=== PATIENT | female | born 1975 | race Caucasian/White ===

== ENCOUNTER 2025-01-20 06:16 | Emergency (ER) | payer BC ==
--- NOTE | 2025-01-20 08:06 | ER ---
Nurse's Notes [facility] Name: Chante Torres Age: 49 yrs Sex: Female : 1975 Arrival Date: 01/20/2025 Time: 06:16 Bed 17 Private MD: Diagnosis: Left fibular fracture distal Presentation: 01/20 06:26 Chief complaint: Patient states: PAIN ON THE LEFT ANKLE AFTER FALLING FROM SITTING ha1 POSITION . YESTERDAY I WAS SITTING ON THE TOILET WHEN HAD LARGE BOWEL MOVEMENT THAT CAUSE ME TO VAGAL. 06:26 Coronavirus screen: Client denies travel out of the [place] in the last 14 days. Ebola ha1 Screen: No symptoms or risks identified at this time. Initial Sepsis Screen: Does the patient meet any 2 criteria? No. Patient's initial sepsis screen is negative. Does the patient have a suspected source of infection? No. Patient's initial sepsis screen is negative. Risk Assessment: Do you want to hurt yourself or someone else?. Onset of symptoms was January 20, 2025. 06:26 Method Of Arrival: Wheelchair ha1 06:26 Acuity: JESS 4 ha1 Triage Assessment: 06:43 General: Appears uncomfortable, Behavior is cooperative. Pain: Complains of pain in ha1 left lateral ankle Pain currently is 6 out of 10 on a pain scale. Neuro: Level of Consciousness is awake, alert, obeys commands, Oriented to person, place, time, situation. Cardiovascular: Patient's skin is warm and dry. Respiratory: Airway is patent Trachea midline Respiratory effort is even, unlabored, Respiratory pattern is regular, symmetrical. [employer]AGE [employer] MECH[employer]IC: 06:54 unknown ss12 Historical: - Allergies: 06:43 Aspirin; ha1 06:43 PENICILLINS; ha1 - PMHx: 06:43 celiac dz; ha1 - Immunization history:: Adult Immunizations up to date. - Infectious Disease History:: Denies. - Social history:: Smoking status: Patient denies any tobacco usage or history of. Screenin:49 [facility] ED Fall Risk Assessment (Adult) History of falling in the last 3 months, ss12 including since admission Yes- single mechanical fall (1 pt) Confusion or Disorientation No (0 pts) Intoxicated or Sedated No (0 pts) Impaired Gait No (0 pts) Mobility Assist Device Used No (0 pt) Altered Elimination No (0 pt) Score/Fall Risk Level 0 - 2 = Low Risk Oriented to surroundings, Maintained a safe environment, Educated pt \T\ family on fall prevention, incl call for assistance when getting out of bed, Assessed \T\ reinforced patient's understanding of fall precautions. Abuse screen: Denies threats or abuse. Denies injuries from another. Nutritional screening: No deficits noted. Tuberculosis screening: No symptoms or risk factors identified. Assessment: 06:30 General: Appears in no apparent distress. comfortable, Behavior is calm, cooperative, ss12 quiet. 06:30 Pain: Complains of pain in left leg left lateral ankle Pain does not radiate. Pain ss12 currently is 6 out of 10 on a pain scale. Quality of pain is described as aching, throbbing, Pain began post fall Is. Neuro: No deficits noted. Level of Consciousness is awake, alert, obeys commands, Oriented to person, place, time, situation. Cardiovascular: No deficits noted. Capillary refill < 3 seconds Patient's skin is warm and dry. Respiratory: No deficits noted. Airway is patent Respiratory effort is even, unlabored, Respiratory pattern is regular, symmetrical. GI: No deficits noted. No signs and/or symptoms were reported involving the gastrointestinal system. : No deficits noted. No signs and/or symptoms were reported regarding the genitourinary system. EENT: No deficits noted. No signs and/or symptoms were reported regarding the EENT system. Derm: No deficits noted. Skin is intact, Skin is dry, Skin is pink, warm \T\ dry. Musculoskeletal: No deficits noted. Circulation, motion, and sensation intact. Swelling right ankle noted. Vital Signs: 06:26 BP 113 / 57; Pulse 76; Resp 18 S; Temp 97.3(T); Pulse Ox 99% on R/A; Weight 86.18 kg; ha1 Height 5 ft. 5 in. ; 07:00 BP 114 / 79; Pulse 70; Resp 16; Pulse Ox 100% ; jp5 08:00 BP 116 / 65; Pulse 64; Resp 16; Temp 98(O); Pulse Ox 100% on R/A; jp5 06:26 Body Mass Index 31.62 (86.18 kg, 165.1 cm) [facility] ED Course: 06:21 Patient arrived in ED. im 06:35 Shamaila, Shamaila, RN is Primary Nurse. ss12 06:43 Triage completed. ha1 06:52 Arm band placed on right wrist. ss12 06:53 Provided Education on: plan of care . ss12 06:53 Patient has correct armband on for positive identification. ss12 06:53 No provider procedures requiring assistance completed. ss12 07:03 Naomy Velasco MD is Attending Physician. sp3 07:54 Ankle Left 3 View In Process Unspecified. EDMS 08:04 Jas Henry MD is Referral Physician. sp3 08:10 Crutch training done. Aung wrap to left ankle Orthoglass splint: Posterior short lleg jp5 splint applied on left leg. Administered Medications: No medications were administered Medication: 06:52 VIS not applicable for this client. 12 Outcome: 08:05 Discharge ordered by . sp3 08:28 Discharged to home via wheelchair, with crutches, jp5 08:28 Condition: stable 08:28 Discharge instructions given to patient, Instructed on discharge instructions, follow up and referral plans. no drinking with medication, medication usage, safety practices, crutch walking, Demonstrated understanding of instructions, follow-up care, medications, crutch walking, splint care, Prescriptions given X 1, 08:32 Patient left the ED. jp5 Signatures: Dispatcher [employer] EDNV Naomy Velasco MD MD sp3 Hetal Bhatia, RN RN ha1 Berta Lowery Jailene, RN RN jp5 Taryn Centeno RN RN 12
--- NOTE | 2025-01-20 08:06 | EDPHYS ---
Physician Documentation [facility] Name: Chante Torres Age: 49 yrs Sex: Female : 1975 Arrival Date: 01/20/2025 Time: 06:16 Bed 17 Private MD: ED Physician Naomy Velasco HPI: 01/20 07:16 This 49 yrs old Female presents to ER via Wheelchair with complaints of Ankle Injury - sp3 left. 07:16 49-year-old female with history of celiac disease presents with left ankle pain after sp3 spraining it yesterday at [email or web address]. Patient was having a bowel movement when she had a vasovagal episode and fell onto the ground. She was assessed by EMS and elected to not come to the ED. Today her ankle continues to hurt and it is difficult to walk due to the pain so she has checked herself in for evaluation of the ankle only. She denies any other symptoms including ongoing or further episodes of syncope, headache, neck pain, chest pain, shortness of breath, abdominal pain, nausea, vomit, diarrhea, rash, bleeding, focal neurological deficit, or any other signs or symptoms on ROS at this time.. 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 - Infectious Disease History:: Denies. - Social history:: Smoking status: Patient denies any tobacco usage or history of. ROS: 07:16 Constitutional: Negative for fever, chills, and weight loss, Eyes: Negative for injury, sp3 pain, redness, and discharge, Neck: Negative for injury, pain, and swelling, Cardiovascular: Negative for chest pain, palpitations, and edema, Respiratory: Negative for shortness of breath, cough, wheezing, and pleuritic chest pain, Abdomen/GI: Negative for abdominal pain, nausea, vomiting, diarrhea, and constipation, Back: Negative for injury and pain, Skin: Negative for injury, rash, and discoloration, Neuro: Negative for headache, weakness, numbness, tingling, and seizure, Psych: Negative for depression, anxiety, suicide ideation, homicidal ideation, and hallucinations, Allergy/Immunology: Negative for hives, rash, and allergies, Endocrine: Negative for neck swelling, polydipsia, polyuria, polyphagia, and marked weight changes, Hematologic/Lymphatic: Negative for swollen nodes, abnormal bleeding, and unusual bruising, 07:16 All other systems are negative, Exam: 07:17 Constitutional: This is a well developed, well nourished patient who is awake, alert, sp3 and in no acute distress. Head/Face: Normocephalic, atraumatic. Eyes: Pupils equal round and reactive to light, extra-ocular motions intact. Lids and lashes normal. Conjunctiva and sclera are non-icteric and not injected. Cornea within normal limits. Periorbital areas with no swelling, redness, or edema. Chest/axilla: Normal chest wall appearance and motion. Nontender with no deformity. No lesions are appreciated. Cardiovascular: Regular rate and rhythm with a normal S1 and S2. No gallops, murmurs, or rubs. Normal PMI, no JVD. No pulse deficits. Respiratory: Lungs have equal breath sounds bilaterally, clear to auscultation and percussion. No rales, rhonchi or wheezes noted. No increased work of breathing, no retractions or nasal flaring. Abdomen/GI: Soft, non-tender, with normal bowel sounds. No distension or tympany. No guarding or rebound. No evidence of tenderness throughout. Back: No spinal tenderness. No costovertebral tenderness. Full range of motion. Skin: Warm, dry with normal turgor. Normal color with no rashes, no lesions, and no evidence of cellulitis. Neuro: Awake and alert, GCS 15, oriented to person, place, time, and situation. Cranial nerves II-XII grossly intact. Motor strength 5/5 in all extremities. Sensory grossly intact. Cerebellar exam normal. Normal gait. Psych: Awake, alert, with orientation to person, place and time. Behavior, mood, and affect are within normal limits. 07:17 Musculoskeletal/extremity: Pain on the lateral malleolus and lateral ankle swelling noted on the left side. Dorsalis pedis pulses normal. Distal capillary refill is normal. Neurologically there is no deficits. No pain at the base of the fifth metatarsal.. Vital Signs: 06:26 BP 113 / 57; Pulse 76; Resp 18 S; Temp 97.3(T); Pulse Ox 99% on R/A; Weight 86.18 kg; ha1 Height 5 ft. 5 in. ; 07:00 BP 114 / 79; Pulse 70; Resp 16; Pulse Ox 100% ; jp5 08:00 BP 116 / 65; Pulse 64; Resp 16; Temp 98(O); Pulse Ox 100% on R/A; jp5 06:26 Body Mass Index 31.62 (86.18 kg, 165.1 cm) [facility] MDM: 07:03 Medical Screening Exam initiated sp3 07:17 Data reviewed: vital signs, nurses notes, radiologic studies. ED course: 49-year-old sp3 female with left ankle injury. Differential diagnosis includes left ankle sprain versus fracture versus Fonseca fracture versus foot fracture versus muscle strain. Left ankle x-ray pending. Foot x-ray not indicated. Disposition pending workup and patient course. Patient declined pain medication. Nursing staff has already given ice for the ankle.. 08:03 ED course: X-ray demonstrates fibular fracture distally with remainder of mortise sp3 intact. Will place in splint, give crutches and patient to follow-up with Dr. Henry her established orthopedist. Discharged on tramadol.. 01/20 07:54 Order name: Ankle Left 3 View; Complete Time: 08:10 EDMS 01/20 08:04 Order name: Crutches; Complete Time: 08:21 sp3 01/20 08:04 Order name: Splint - Ankle: Posterior; Complete Time: 08:21 sp3 01/20 08:04 Order name: Splint - Ankle: Orthoglass: Stirrup; Complete Time: 08:21 sp3 Administered Medications: No medications were administered Disposition Summary: 01/20/25 08:05 Discharge Ordered Notes: Location: Home sp3 Condition: Stable sp3 Diagnosis - Left fibular fracture distal sp3 Followup: sp3 - With: Jas Henry MD - When: Upon discharge from the Emergency Department - Reason: Discharge Instructions: - Discharge Summary Sheet sp3 - Ankle Fracture sp3 - Crutch Use, Adult sp3 Forms: - Medication Reconciliation Form sp3 - Antibiotic Education sp3 - Prescription Opioid Use sp3 - Patient Portal Instructions sp3 - Leadership Thank You Letter sp3 Prescriptions: - Tramadol 50 mg Oral Tablet - take 1 tablet ORAL route every 8 hours as needed; 12 tablet; Refills: 0, sp3 Product Selection Permitted Signatures: Dispatcher [employer] EDMS Naomy Velasco MD MD sp3 Hetal Bhatia RN RN ha1 Corrections: (The following items were deleted from the chart) 07:54 06:45 Ankle Left 2 View+RAD.[email or web address].[email or web address] ordered. EDMS EDMS
--- NOTE | 2025-01-20 08:09 | RAD REPORT ---
EXAMINATION: XR Ankle Left 3 View CLINICAL INDICATION: Female, 49 years old. [facility] Bed Name: 17 TECHNIQUE: 3 view radiographs of the left ankle were obtained. COMPARISON: No prior exam. FINDINGS: Oblique mildly displaced fracture of the distal fibula at the level of the distal tibiofibu lar syndesmosis. Mild soft tissue swelling. Moderate calcaneal spur. No other suspicious focal osseous lesion or significant degenerative changes. IMPRESSION: Oblique mildly displaced distal fibular fracture. Absence of weightbearing images limits evaluation f or distal tibiofibular syndesmotic integrity.
[2025-01-20 08:48] VITALS: O2SAT 100
[2025-01-20 08:50] VITALS: BP 116/65; TEMP 98
== END 2025-01-20 08:32 | disposition home or self-care (01) ==
LOC: ER 06:16
PROC: 2W3TX1Z Immobilization of Left Foot using Splint (ICD-10-PCS; principal; 2025-01-20)
DX: S82.832A Other fracture of upper and lower end of left fibula, initial encounter for closed fracture (principal); W18.30XA Fall on same level, unspecified, initial encounter
CPT/HCPCS: 99283